=== PATIENT | female | born 1945 | race Caucasian/White ===

== ENCOUNTER → 2019-01-02 | Outpatient (CLI) | payer OTHER ==
[~2019-01-02] MED LIST: ASPIRIN81 M1 PO; E400400 IU PO; LISINOPRIL10 MG PO; METOPROLOL100 MG PO; MULTIVITAMINS; OYSTER SHELL C500 M3 PO; THERAGRAN1 TA1 PO; VITAMIN C1000 M2 PO; VITAMIN D1000 IU PO
== END | disposition home or self-care (01) ==
LOC: RAD 14:42
DX: M65.311 Trigger thumb, right thumb (principal)

== ENCOUNTER 2022-11-29 20:30 | Emergency (ER) | payer MEDICARE ==
[~2022-11-29] VITALS: Wt 56.7 kg
[2022-11-29 21:45] LABS: BASO % 0.4 % (0.0-1.0); EOS % 0.8 % (1.0-4.0); HEMATOCRIT 37.7 % (37.0-47.0); LYMPH # 0.8 10*3/uL (1.3-4.4); LYMPH % 16.4 % (27.0-41.0); MEAN CELL VOLUME 100.3 fl (81.0-99.0); MEAN CORPUSCULAR HGB 34.3 pg (27.0-31.0); MEAN CORPUSCULAR HGB CONC 34.2 g/dl (33.0-37.0); MEAN PLATELET VOLUME 8.9 fl (9.6-12.3); MONO # 0.6 10*3/uL (0.1-1.0); MONO % 11.5 % (3.0-9.0); NEUT # 3.4 10*3/uL (2.3-7.9); NEUT % 70.5 % (47.0-73.0); PLATELET COUNT AUTOMATED 234 10*3/uL (130-400); RED BLOOD COUNT 3.76 10*6/uL (4.10-5.10); RED CELL DISTRI WIDTH 12.8 % (0-14.5); WHITE BLOOD COUNT 4.8 10*3/uL (4.8-10.8)
[2022-11-29 21:59] LABS: ALKALINE PHOSPHATASE 83 U/L (46-116); BUN 16 mg/dl (9-23); CHLORIDE 107 mmol/L (98-107); LIPASE 39 U/L (12-53); POTASSIUM 2.9 mmol/L (3.4-5.1); SGPT/ALT 28 U/L (10-49); TOTAL PROTEIN 6.4 gm/dL (6.0-8.0)
[2022-11-29] MEDS ORDERED: ONDANSETRON4 MG SL (22:44)
== END 2022-11-29 23:12 | disposition home or self-care (01) ==
LOC: ED 20:30
PROVIDERS: Emergency Medicine
DX: K29.70 Gastritis, unspecified, without bleeding (principal); I10 Essential (primary) hypertension; J44.9 Chronic obstructive pulmonary disease, unspecified

== ENCOUNTER 2023-02-22 13:28 | Emergency (ER) | payer MEDICARE ==
[~2023-02-22] VITALS: Wt 57.6 kg
[~2023-02-22 13:28] MED LIST changes: +ONDANSETRON4 MG SL
== END 2023-02-22 17:11 | disposition home or self-care (01) ==
LOC: ED 13:28
DX: S70.01XA Contusion of right hip, initial encounter (principal); I10 Essential (primary) hypertension; J44.9 Chronic obstructive pulmonary disease, unspecified; W19.XXXA Unspecified fall, initial encounter; Y93.54 Activity, bowling; Y92.89 Other specified places as the place of occurrence of the external cause; Y99.8 Other external cause status